=== PATIENT | female | born 1970 | race Caucasian/White ===

== ENCOUNTER 2017-03-22 06:19 | Day surgery (SDC) | payer MEDICAID, OTHER ==
[2017-03-15 17:45] VITALS: BMI 29.4
--- NOTE | 2017-03-21 22:25 | P.HPOB ---
History of Present Illness H&P Date: 03/21/17 Chief Complaint: Menorrhagia with regular cycle, thickened endometrium This is a 46 y.o. female, 2, para 2, who presents for dilation and curettage with hysteroscopy secondary to menorrhagia with irregular cycle and extended to meet endometrium. Her pelvic ultrasound showed a uterus measuring 8.9 x 5.8 x 4.6 cm with an endometrial thickness of 17 mm with debris in the endometrial cavity. Left ovary had a small simple cyst less than 1 cm. She complains of heavy menses that occur monthly and last 7 days. Obstetrical history: . History of 2 vaginal deliveries. Gynecologic history: No history of sexual transmitted diseases. She has had a tubal ligation. Social history: She is and works as an RN. Review of Systems Constitutional: Denies chills, Denies fever Cardiovascular: Denies chest pain, Denies shortness of breath Respiratory: Denies cough Gastrointestinal: Denies abdominal pain, Denies diarrhea, Denies nausea, Denies vomiting Genitourinary: Reports menorrhagia Menstruation: Reports period heavy Musculoskeletal: Denies myalgias Integumentary: Denies pruritus, Denies rash Neurological: Denies numbness, Denies weakness Psychiatric: Denies anxiety, Denies depression Past Medical History Past Medical History: Asthma History of Any Multi-Drug Resistant Organisms: None Reported Past Surgical History: Cholecystectomy, Tubal Ligation Additional Past Surgical History / Comment(s): surgery to straighten joe pinky fingers Past Anesthesia/Blood Transfusion Reactions: Previous Problems w/ Anesthesia Additional Past Anesthesia/Blood Transfusion Reaction / Comment(s): episode of "shaking and couldnt get warm after anesthesia" Past Psychological History: No Psychological Hx Reported Smoking Status: Former smoker Past Alcohol Use History: Occasional Past Drug Use History: None Reported - Past Family History Mother Family Medical History: No Reported History Medications and Allergies Home Medications Medication Instructions Recorded Confirmed Type No Known Home Medications [No 03/15/17 03/15/17 History Known Home Medications] Allergies Allergy/AdvReac Type Severity Reaction Status Date / Time No Known Allergies Allergy Verified 03/15/17 17:30 Exam Osteopathic Statement: *. No significant issues noted on an osteopathic structural exam other than those noted in the History and Physical/Consult. HEENT: Within normal limits Heart: Regular rate and rhythm Lungs: Clear to auscultation bilaterally Abdomen: Soft, nontender Pelvic exam: Uterus is anteverted, nontender, with no adnexal masses or tenderness palpated. Extremities: Negative Homans Assessment and Plan (1) Menorrhagia with regular cycle Status: Acute Code(s): N92.0 - EXCESSIVE AND FREQUENT MENSTRUATION WITH REGULAR CYCLE SNOMED Code(s): 305750971 (2) Endometrial thickening on ultra sound Status: Acute Code(s): R93.8 - ABNORMAL FINDINGS ON DIAGNOSTIC IMAGING OF BODY STRUCTURES SNOMED Code(s): 638378908 Plan: Proceed with dilation and curettage with hysteroscopy. I have discussed the risks, benefits, and alternative therapies for the above- mentioned procedure and for both sedation/anesthesia as well as necessary blood products administration, if indicated, as they pertain to this patient. The patient has indicated her understanding and acceptance of the risks and procedures discussed.
[~2017-03-22 06:19] MED LIST: DEXAMETHASONE SOD PHOSPHATE 10 MG/ML 1 ML VIAL IV ONE; HYDROmorphone 1 MG/ML 1 ML SYRINGE IVP PRN; LACTATED RINGERS 1,000 ML IV SCH; MIDAZOLAM 2 MG/2 ML VIAL IV PRN; ONDANSETRON 4 MG/2 ML VIAL IVP ONE; Pre Op ABX Message 1 EACH MISC MISCELLANE ONE; SCOPOLAMINE 1.5MG/72HR PATCH TRANSDERM ONE
[2017-03-22] MEDS ORDERED: LIDOCAINE 1% 20 ML VIAL (10MG/ML) FOR IV START INTRADERMA ONE (06:41)
[2017-03-22 07:15] LABS: Glucose,Whole Blood 258 mg/dL (75-99)
[2017-03-22 07:15] LABS: Glucose,Whole Blood 266 mg/dL (75-99)
[2017-03-22] MEDS ORDERED: MIDAZOLAM 2 MG/2 ML VIAL ONE (07:33)
[2017-03-22] MEDS ORDERED: LIDOCAINE 1% INJ 10MG/ML (20 ML MDV) ONE (07:33)
[2017-03-22] MEDS ORDERED: PROPOFOL 10 MG/ML 20 ML VIAL IV ONE (07:33)
[2017-03-22] MEDS ORDERED: fentaNYL (PF) 50 MCG/ML 2 ML AMP ONE (07:33)
[2017-03-22 08:27] VITALS: TEMP 97.6
--- NOTE | 2017-03-22 08:59 | P.OP ---
Date of Procedure: 03/22/17 Preoperative Diagnosis: Menorrhagia with regular cycle Endometrial thickening Postoperative Diagnosis: Same Procedure(s) Performed: Hysteroscopy with dilation and curettage Anesthesia: REHAN Surgeon: Madeline Devlin Estimated Blood Loss (ml): 10 Pathology: other (#1-endocervical polyp, #2-Endometrial curettings) Condition: stable Disposition: same day Indications for Procedure: This is a 46 y.o. female, 2, para 2, who presents for dilation and curettage with hysteroscopy secondary to menorrhagia with irregular cycle and extended to meet endometrium. Her pelvic ultrasound showed a uterus measuring 8.9 x 5.8 x 4.6 cm with an endometrial thickness of 17 mm with debris in the endometrial cavity. Left ovary had a small simple cyst less than 1 cm. She complains of heavy menses that occur monthly and last 7 days. Operative Findings: On the cervix at approximately 4 o'clock position there was a firm polypoid type lesion noted approximately half a centimeter. Uterus is sounded to 9 cm. Upon hysteroscopy a dyssynchronous endometrial pattern was noted. Neither tubal ostia was completely visualized. No specific polyps or fibroids were visualized. The patient was on her menses. No adnexal masses are palpated. Uterus is found to be anteverted Description of Procedure: The patient was taken to the operating room where she is placed in the dorsal lithotomy position. She is prepped and draped in the normal sterile fashion. Bladder is drained with a catheter. Examination is performed under anesthesia. The uterus is found to be anteverted with no adnexal masses palpated. Next a weighted speculum was placed in the patient's vagina and right angle retractor was used to visualize the cervix. The anterior lip of the cervix is grasped with a single-tooth tenaculum. The uterus is sounded to 9 cm. The cervix is then gently dilated with Carranza dilators until a hysteroscope could be passed. Hysteroscopy was performed using normal saline. The above-noted findings were made and pictures were taken. Next the hysteroscope was withdrawn. The cervix was gently dilated further. Next the cervical polyp was grasped with a ring forcep and then gently cut off with Diane scissors. The skin was sent separately as an endocervical polyp. Next a polyp forcep was introduced into the endometrial cavity. Minimal tissue was obtained. Next the medium-size sharp curet was introduced and sharp curettage was performed until a gritty texture was noted. A relatively smooth contour was noted. A minimal to moderate amount of tissue was obtained. Next the area where the cervical polyp was removed was noted to be bleeding slightly. A cautery pen was then used to cauterize the bed left behind. Excellent hemostasis was noted. The single- tooth tenaculum was removed from the anterior lip of the cervix and no bleeding was noted. All sponge and needle counts are correct. The patient is then taken to recovery room in stable condition.
[2017-03-22 09:11] VITALS: RESP 16
[2017-03-22 09:34] VITALS: BP 115/78; PULSE 80
== END 2017-03-22 09:56 | disposition home or self-care (01) ==
LOC: OR 06:19
PROVIDERS: ATTEND Obstetrics & Gynecology
DX: N92.1 Excessive and frequent menstruation with irregular cycle (principal); R93.8 Abnormal findings on diagnostic imaging of other specified body structures; N84.1 Polyp of cervix uteri; N83.292 Other ovarian cyst, left side; Z98.51 Tubal ligation status; J45.909 Unspecified asthma, uncomplicated; Z87.891 Personal history of nicotine dependence
CPT/HCPCS: 81025; 88305; 58558; J2250; J2001; J3010; J1170; J2704

== ENCOUNTER → 2017-08-08 | Outpatient (CLI) | payer MEDICAID, OTHER ==
[2017-08-08 08:36] LABS: Cholesterol 175 mg/dL (<200); HDL Cholesterol 59 mg/dL (40-60); LDL Cholesterol,Calculated 100 mg/dL (0-99); Triglycerides 79 mg/dL (<150)
== END | disposition home or self-care (01) ==
LOC: LABWHC1 06:50
PROVIDERS: ATTEND Family Medicine
DX: E11.9 Type 2 diabetes mellitus without complications (principal)
CPT/HCPCS: 36415; 80061

== ENCOUNTER → 2017-12-05 | Outpatient (CLI) | payer MEDICAID, OTHER ==
--- NOTE | 2017-12-11 10:11 | MM ---
Reason for exam: screening (asymptomatic). Last mammogram was performed 1 year and 4 months ago. History: Took hormonal contraceptives for 15 years. Physical Findings: A clinical breast exam by your physician is recommended on an annual basis and results should be correlated with mammographic findings. MG 3D Screening Mammo W/Cad Bilateral CC and MLO view(s) were taken. Prior study comparison: August 13, 2016, mammogram, performed at [facility]. The breast tissue is heterogeneously dense. This may lower the sensitivity of mammography. There is no discrete abnormality. ASSESSMENT: Negative, BI-RAD 1 RECOMMENDATION: Routine screening mammogram of both breasts in 1 year.
== END | disposition home or self-care (01) ==
LOC: RADMAMWWP 15:09
PROVIDERS: ATTEND Family Medicine
DX: Z12.31 Encounter for screening mammogram for malignant neoplasm of breast (principal)
CPT/HCPCS: 77063; 77067

== ENCOUNTER → 2018-12-12 | Outpatient (CLI) | payer MEDICAID, OTHER ==
[2018-12-12 18:37] LABS: African American GFR (CKD) 126.7 (60.0-200.0); Anion Gap 9.9 mmol/L (4.00-12.00); BUN/Creat Ratio 33.33 Ratio (12.00-20.00); Carbon Dioxide 21.1 mmol/L (21.6-31.8); LDL Cholesterol,Calculated 97.2 mg/dL (0.0-131.0); Potassium 4.4 mmol/L (3.5-5.5); VLDL Calculation 23.8 mg/dL (5.00-40.00)
== END | disposition home or self-care (01) ==
LOC: LABWHC1 06:42
PROVIDERS: ATTEND Family Medicine
DX: E11.9 Type 2 diabetes mellitus without complications (principal)
CPT/HCPCS: 36415; 80048; 80061

== ENCOUNTER → 2019-01-06 | Outpatient (CLI) | payer MEDICAID, OTHER ==
--- NOTE | 2019-01-08 09:29 | MM ---
Reason for exam: screening (asymptomatic). Last mammogram was performed 1 year and 1 month ago. History: Took hormonal contraceptives for 15 years. Physical Findings: A clinical breast exam by your physician is recommended on an annual basis and results should be correlated with mammographic findings. MG 3D Screening Mammo W/Cad Bilateral CC and MLO view(s) were taken. Prior study comparison: December 05, 2017, bilateral MG 3d screening mammo w/cad. August 13, 2016, mammogram, performed at [facility]. The breast tissue is heterogeneously dense. This may lower the sensitivity of mammography. No significant changes when compared with prior studies. ASSESSMENT: Benign, BI-RAD 2 RECOMMENDATION: Routine screening mammogram of both breasts in 1 year.
== END | disposition home or self-care (01) ==
LOC: RADMAMWWP 15:57
PROVIDERS: ATTEND Obstetrics & Gynecology
DX: Z12.31 Encounter for screening mammogram for malignant neoplasm of breast (principal)
CPT/HCPCS: 77063; 77067

== ENCOUNTER → 2019-04-07 | Outpatient (CLI) | payer MEDICAID ==
[2019-04-07 08:54] LABS: Basophils % (A) 0 %; Eosinophils # (A) 0.1 k/uL (0-0.7); Eosinophils % (A) 1 %; HCT 38.4 % (34.0-46.0); HGB 13.2 gm/dL (11.4-16.0); Lymphocytes # (A) 2.1 k/uL (1.0-4.8); Lymphocytes % (A) 38 %; MCH 32.7 pg (25.0-35.0); MCHC 34.5 g/dL (31.0-37.0); MCV 94.8 fL (80.0-100.0); Mean Platelet Volume 5.4; Monocytes # (A) 0.3 k/uL (0-1.0); Monocytes % (A) 5 %; Neutrophils % (A) 54 %; Platelet Count 351 k/uL (150-450); RBC 4.05 m/uL (3.80-5.40); RDW 12.3 % (11.5-15.5); WBC 5.5 k/uL (3.8-10.6)
[2019-04-07 11:53] LABS: Erythrocyte Sedimentation Rate 8 mm/hr (0-20)
[2019-04-07 16:32] LABS: C Reactive Protein <0.4 mg/dL (0.0-0.8); Rheumatoid Factor, Qnt 6 IU/mL (0-15); Uric Acid 5.8 mg/dL (2.9-7.7)
[2019-04-07 16:41] LABS: Anti-DNA, DS unit <1.0 IU/mL; DNA Double-Stranded NEGATIVE (NEGATIVE)
[2019-04-08 11:02] LABS: HLA B27 POSITIVE
== END | disposition home or self-care (01) ==
LOC: LABWHC1 07:52
PROVIDERS: ATTEND Orthopaedic Surgery
DX: M25.50 Pain in unspecified joint (principal)
CPT/HCPCS: 36415; 84550; 85025; 85652; 86038; 86140; 86225; 86431; 86812